=== PATIENT | female | born 1985 | race African-American/Black ===

== ENCOUNTER 2017-01-19 10:23 | Emergency (ER) | payer OTHER ==
[~2017-01-19] VITALS: Ht 162.6 cm; Wt 100.0 kg
[~2017-01-19 10:23] MED LIST: AFRIN 12 HOUR0.05 %; AMOXICILLIN500 MG PO; CEPHALEXIN500 MG OR; CIPRO500 MG OR; CIPRO500 MG PO; FOLIC ACID400 MC1 OR; IBUPROFEN600 MG PO; LORTAB 5 OR; LORTAB5 PO; NO CURRENT MEDS; PRE-NATAL PO; PRENATAL1 TA1 PO; PRILOSEC20 MG OR; PROMETHAZINE25 MG OR; ULTRAM50 MG OR
[2017-01-19 11:38] LABS: INFLUENZA A NONE DETECTED (NONE DETECT); INFLUENZA B NONE DETECTED (NONE DETECT)
[2017-01-19] MEDS ORDERED: AMOXICILLIN500 MG PO (11:42)
[2017-01-19 11:50] VITALS: BP 144/84
== END 2017-01-19 11:50 | disposition home or self-care (01) | DRG 153 ==
LOC: ED 10:23
PROVIDERS: Family Medicine
DX: H66.92 Otitis media, unspecified, left ear (principal)

== ENCOUNTER 2017-03-22 22:30 | Emergency (ER) | payer OTHER ==
[~2017-03-22] VITALS: Ht 162.6 cm; Wt 100.0 kg
[2017-03-23] MEDS ORDERED: ULTRAM50 M1 PO (00:03)
[2017-03-23 00:11] VITALS: BP 131/71
== END 2017-03-23 00:20 | disposition home or self-care (01) | DRG 563 ==
LOC: ED 22:30
DX: S96.912A Strain of unspecified muscle and tendon at ankle and foot level, left foot, initial encounter (principal); M25.472 Effusion, left ankle

== ENCOUNTER 2017-04-06 18:15 | Emergency (ER) | payer OTHER ==
[~2017-04-06] VITALS: Ht 162.6 cm; Wt 119.0 kg
[~2017-04-06 18:15] MED LIST changes: +ULTRAM50 M1 PO
[2017-04-06] MEDS ORDERED: AMOXICILLIN500 MG PO (19:23)
[2017-04-06] MEDS ORDERED: PERCOCET 5/325M1 TAB PO (19:23)
[2017-04-06 19:24] VITALS: BP 130/80
== END 2017-04-06 20:00 | disposition home or self-care (01) | DRG 159 ==
LOC: ED 18:15
DX: K02.9 Dental caries, unspecified (principal)

== ENCOUNTER 2018-10-24 19:05 | Emergency (ER) | payer SELFPAY ==
[~2018-10-24] VITALS: Ht 162.6 cm; Wt 123.2 kg
[~2018-10-24 19:05] MED LIST changes: +PERCOCET 5/325M1 TAB PO
[2018-10-24] MEDS ORDERED: PENICILLN VK500 MG PO (19:49)
[2018-10-24] MEDS ORDERED: TRAMADOL HYDROC50 MG PO (19:49)
[2018-10-24 19:55] VITALS: BP 145/98
== END 2018-10-24 19:55 | disposition home or self-care (01) | DRG 158 ==
LOC: ED 19:05
DX: K04.7 Periapical abscess without sinus (principal); M84.48XA Pathological fracture, other site, initial encounter for fracture

== ENCOUNTER 2018-12-31 16:22 | Emergency (ER) | payer OTHER ==
[~2018-12-31] VITALS: Ht 162.6 cm; Wt 122.4 kg
[~2018-12-31 16:22] MED LIST changes: +PENICILLN VK500 MG PO; +TRAMADOL HYDROC50 MG PO
[2018-12-31] MEDS ORDERED: PENICILLN VK500 M1 PO (17:59)
[2018-12-31] MEDS ORDERED: OFLOXACIN0.3 % OS (17:59)
[2018-12-31 18:39] VITALS: BP 143/90
== END 2018-12-31 18:41 | disposition home or self-care (01) ==
LOC: ED 16:22
DX: H57.11 Ocular pain, right eye (principal); R68.84 Jaw pain; K08.89 Other specified disorders of teeth and supporting structures

== ENCOUNTER 2019-06-19 | Emergency (ER) | payer OTHER ==
[~2019-06-19] MED LIST changes: +OFLOXACIN0.3 % OS; +PENICILLN VK500 M1 PO
[2019-06-19 16:03] LABS: URINE BILIRUBIN - DIPSTICK NEGATIVE (NEGATIVE); URINE BLOOD DIPSTICK LARGE (NEGATIVE); URINE COLOR YELLOW; URINE GLUCOSE - DIPSTICK NEGATIVE (NEGATIVE); URINE KETONE NEGATIVE (NEGATIVE); URINE LEUK ESTERASE NEGATIVE (NEGATIVE); URINE NITRITE - DIPSTICK NEGATIVE (Negative); URINE PROTEIN - DIPSTICK TRACE mg/dL (NEG-TRACE); URINE SPECIFIC GRAVITY >=1.030; URINE UROBILINOGEN - DIPSTICK 0.2 E.U./dL (0.2)
[2019-06-19 16:09] LABS: BARBITURATES NEGATIVE (NEGATIVE); COCAINE NEGATIVE (NEGATIVE); METHADONE NEGATIVE (NEGATIVE); OXCYCODONE NEGATIVE (NEGATIVE); TETRAHYDROCANNABIONOL NEGATIVE (NEGATIVE); TRICYLIC ANTIDEPRESSANTS NEGATIVE (NEGATIVE)
[2019-06-19 16:19] LABS: URINE MUCUS FEW hpf (NONE-FEW); URINE RBC 25-50 RBC/hpf (0-5); URINE SQUAMOUS EPITHELIAL CELL FEW EPI/hpf (0-FEW)
[2019-06-19] MEDS ORDERED: FIORICET PO (17:45)
== END 2019-06-19 17:56 | disposition home or self-care (01) ==
DX: R51 Headache (principal)

== ENCOUNTER 2019-12-20 16:12 | Emergency (ER) | payer OTHER ==
[~2019-12-20] VITALS: Ht 162.6 cm; Wt 105.0 kg
[~2019-12-20 16:12] MED LIST changes: +FIORICET PO
[2019-12-20 16:28] VITALS: BP 147/80
== END 2019-12-20 16:28 | disposition home or self-care (01) ==
LOC: ED 16:12
DX: K13.79 Other lesions of oral mucosa (principal); Z97.8 Presence of other specified devices

== ENCOUNTER 2020-04-26 07:12 | Emergency (ER) | payer OTHER ==
[~2020-04-26] VITALS: Ht 162.6 cm; Wt 126.8 kg
[2020-04-26 07:47] LABS: URINE BILIRUBIN - DIPSTICK NEGATIVE (NEGATIVE); URINE BLOOD DIPSTICK TRACE-INTACT (NEGATIVE); URINE COLOR YELLOW; URINE GLUCOSE - DIPSTICK NEGATIVE (NEGATIVE); URINE KETONE NEGATIVE (NEGATIVE); URINE NITRITE - DIPSTICK NEGATIVE (Negative); URINE PROTEIN - DIPSTICK NEGATIVE (NEG-TRACE); URINE SPECIFIC GRAVITY >=1.030
[2020-04-26 07:52] LABS: URINE LEUK ESTERASE MODERATE (NEGATIVE)
[2020-04-26 07:53] LABS: URINE BACTERIA MODERATE hpf; URINE EPITHELIAL CELLS FEW EPI/hpf (0-FEW); URINE RBC 0-2 RBC/hpf (0-5); URINE WBC 20-50 WBC/hpf (0-5)
[2020-04-26] MEDS ORDERED: BACTRIM DS1 TAB PO (08:02)
[2020-04-26 08:13] VITALS: BP 133/80
== END 2020-04-26 08:27 | disposition home or self-care (01) ==
LOC: ED 07:12
PROVIDERS: Family Medicine
DX: N30.00 Acute cystitis without hematuria (principal); B96.4 Proteus (mirabilis) (morganii) as the cause of diseases classified elsewhere

== ENCOUNTER 2020-05-11 10:24 | Emergency (ER) | payer OTHER ==
[~2020-05-11] VITALS: Ht 162.6 cm; Wt 127.0 kg
[~2020-05-11 10:24] MED LIST changes: +BACTRIM DS1 TAB PO
[2020-05-11 11:41] LABS: ANION GAP 11 (6-22 (CALC)); BUN 9 mg/dL (7-17); BUN/CREATININE RATIO 14 (12-20 (CALC)); CARBON DIOXIDE 26 mmol/l (22-30); CHLORIDE 108 mmol/l (95-108); CREATININE 0.6 mg/dL (0.5-1.0); GFR > 60 ML/MIN (>=60 (CALC)); GFR FOR AFR.AMER. > 60 ML/MIN (>=60 (CALC)); POTASSIUM 4.4 mmol/l (3.5-5.1); SODIUM 140 mmol/l (137-146)
[2020-05-11 11:48] LABS: HEMATOCRIT 36.8 % (37.0-47.0); HEMOGLOBIN 11.9 g/dl (12.0-16.0); IMMATURE GRANULOCYTES 0.4 % (0.0-5.0); MEAN CELL VOLUME 84.8 fL CALC (80.0-100.0); MEAN CORPUSCULAR HGB 27.4 pG CALC (26.0-32.0); MEAN CORPUSCULAR HGB CONC 32.3 g/dL CAL (32.0-36.0); NEUT# 1.6 thou/uL (2.00-7.15); RED BLOOD COUNT 4.34 mill/uL (4.20-5.60)
[2020-05-11 12:45] VITALS: BP 122/75
== END 2020-05-11 12:57 | disposition home or self-care (01) ==
LOC: ED 10:24
PROVIDERS: Family Medicine
DX: R51.9 Headache, unspecified (principal); G43.909 Migraine, unspecified, not intractable, without status migrainosus

== ENCOUNTER 2020-05-15 11:08 | Emergency (ER) | payer OTHER ==
[~2020-05-15] VITALS: Ht 162.6 cm; Wt 127.3 kg
[2020-05-15 12:52] VITALS: BP 131/86
== END 2020-05-15 12:52 | disposition home or self-care (01) ==
LOC: ED 11:08
DX: U07.1 COVID-19 (principal); R43.8 Other disturbances of smell and taste

== ENCOUNTER 2020-12-21 14:39 | Emergency (ER) | payer OTHER ==
[~2020-12-21] VITALS: Ht 162.6 cm; Wt 105.0 kg
[2020-12-21 17:18] VITALS: BP 120/78
== END 2020-12-21 17:18 | disposition home or self-care (01) ==
LOC: ED 14:39
DX: Z20.822 Contact with and (suspected) exposure to COVID-19 (principal)

== ENCOUNTER 2021-02-04 08:32 | Emergency (ER) | payer OTHER ==
[~2021-02-04] VITALS: Ht 162.6 cm; Wt 122.7 kg
[2021-02-04] MEDS ORDERED: TYLENOL # 31 TA1 PO (08:54)
[2021-02-04] MEDS ORDERED: AMOXICILLIN875 MG PO (08:54)
[2021-02-04] MEDS ORDERED: LISINOPRIL10 MG PO (09:02)
[2021-02-04 09:08] VITALS: BP 134/82
== END 2021-02-04 09:08 | disposition home or self-care (01) ==
LOC: ED 08:32
DX: H66.91 Otitis media, unspecified, right ear (principal); J02.9 Acute pharyngitis, unspecified; I10 Essential (primary) hypertension; Z86.16 Personal history of COVID-19; Z20.822 Contact with and (suspected) exposure to COVID-19

== ENCOUNTER 2024-04-02 08:39 | Emergency (ER) | payer OTHER ==
[~2024-04-02] VITALS: Ht 162.6 cm; Wt 86.0 kg
[~2024-04-02 08:39] MED LIST changes: +AMOXICILLIN875 MG PO; +LISINOPRIL10 MG PO; +TYLENOL # 31 TA1 PO
[2024-04-02 08:48] VITALS: BP 115/81
[2024-04-02 09:34] VITALS: BP 115/81
== END 2024-04-02 09:20 | disposition home or self-care (01) ==
LOC: ED 08:39
DX: Z48.01 Encounter for change or removal of surgical wound dressing (principal); Z98.890 Other specified postprocedural states; I10 Essential (primary) hypertension